=== PATIENT | female | born 1940 | race Caucasian/White ===

== ENCOUNTER → 2019-12-07 | Outpatient (CLI) | payer MEDICARE ==
[~2019-12-07] MED LIST: AMLO10TA8 PO; ASPI-496 PO; CALC-148 PO; CHOL5000 PO; LISI40TA PO; LOVA10TA PO
[2019-12-07 11:12] LABS: ALANINE AMINOTRANSFERASE 12 U/L (12-78); ALBUMIN 4.1 g/dL (3.4-5.0); ANION GAP 7 mmol/L (5-15); CALCIUM 10.2 mg/dL (8.5-10.1); CHLORIDE 108 mmol/L (98-107)
[2019-12-07 11:15] LABS: ALKALINE PHOSPHATASE 92 U/L (45-117); BILIRUBIN,TOTAL 0.8 mg/dL (0.2-1.0); CREATININE 1.27 mg/dL (0.55-1.02); TOTAL PROTEIN 8.2 g/dL (6.4-8.2)
== END | disposition home or self-care (01) ==
LOC: STAR 09:53
PROVIDERS: ATTEND Internal Medicine
DX: Z01.818 Encounter for other preprocedural examination (principal); I44.7 Left bundle-branch block, unspecified
CPT/HCPCS: 36415; 80053; 93005

== ENCOUNTER 2019-12-13 06:34 | Day surgery (SDC) | payer MEDICARE ==
[~2019-12-13] VITALS: Ht 160 cm; Wt 65.8 kg
[2019-12-13] MEDS ORDERED: LACTATED RINGERS 1,000 ML IV SCH (07:15)
[2019-12-13 07:16] VITALS: BP 166/77
[2019-12-13] MEDS ORDERED: CEFAZOLIN 1,000 MG ONE ×2 (09:34)
[2019-12-13] MEDS ORDERED: SODIUM CHLORIDE 0.9% PF 10ML ONE (09:34)
[2019-12-13] MEDS ORDERED: PROPOFOL 10 MG/ML, 20ML ONE ×3 (09:34→09:53)
== END 2019-12-13 12:00 | disposition home or self-care (01) ==
LOC: OUT 06:34
PROVIDERS: ATTEND Internal Medicine
DX: K86.89 Other specified diseases of pancreas (principal); C25.7 Malignant neoplasm of other parts of pancreas; I10 Essential (primary) hypertension; E11.9 Type 2 diabetes mellitus without complications; E78.5 Hyperlipidemia, unspecified; Z79.82 Long term (current) use of aspirin; Z79.899 Other long term (current) drug therapy; Z87.891 Personal history of nicotine dependence; Z83.3 Family history of diabetes mellitus; Z80.3 Family history of malignant neoplasm of breast
CPT/HCPCS: 43242; 82962; 88172; 88173; 88177; 88307; J0690; J2704; J7120

== ENCOUNTER 2020-01-06 07:55 | Outpatient (CLI) | payer MEDICARE | END 2020-01-06 23:59 | disposition home or self-care (01) | LOC: ROC 07:55 | PROVIDERS: ATTEND Radiology Radiation Oncology | DX: C25.9 Malignant neoplasm of pancreas, unspecified (principal); Z80.3 Family history of malignant neoplasm of breast; Z87.891 Personal history of nicotine dependence | CPT/HCPCS: 99214; G0463 ==

== ENCOUNTER 2020-01-20 08:42 | Day surgery (SDC) | payer MEDICARE ==
[~2020-01-20] VITALS: Ht 157.5 cm; Wt 65.1 kg
[2020-01-20] MEDS ORDERED: CEFAZOLIN PMX 1GM/50ML 50 ML IV STA (09:03)
[2020-01-20] MEDS ORDERED: SODIUM CHLORIDE 0.9% 1,000 ML IV SCH (09:03)
[2020-01-20 09:19] VITALS: BP 150/69
[2020-01-20] MEDS ORDERED: PLEASE ENTER HEIGHT AND WEIGHT MC SCH (09:30)
[2020-01-20] MEDS ORDERED: LIDOCAINE 1%, 10ML ONE (10:02)
[2020-01-20] MEDS ORDERED: LIDOCAINE 1%, 20ML ONE (10:02)
[2020-01-20] MEDS ORDERED: MIDAZOLAM 1 MG/ML, 5ML ONE (10:42)
[2020-01-20] MEDS ORDERED: FENTANYL PF 100 MCG/2ML ONE ×2 (10:42)
[2020-01-20] MEDS ORDERED: NALOXONE 1 MG/ML, 2ML ONE (10:43)
[2020-01-20] MEDS ORDERED: FLUMAZENIL 0.1 MG/1 ML, 5ML ONE (10:43)
[2020-01-21] MEDS ORDERED: SODIUM CHLORIDE 0.9% 1,000 ML IV SCH (09:03)
== END 2020-01-20 13:25 | disposition home or self-care (01) ==
LOC: OUT 08:42
PROVIDERS: ATTEND Internal Medicine Hematology & Oncology
DX: C25.8 Malignant neoplasm of overlapping sites of pancreas (principal); I10 Essential (primary) hypertension; E11.9 Type 2 diabetes mellitus without complications; E78.5 Hyperlipidemia, unspecified; Z79.899 Other long term (current) drug therapy; Z87.891 Personal history of nicotine dependence; Z82.49 Family history of ischemic heart disease and other diseases of the circulatory system; Z80.3 Family history of malignant neoplasm of breast
CPT/HCPCS: 36561; 76937; 77001; 99156; 99157; C1788; J0690; J1642; J2250; J3010; J7030; J2310

== ENCOUNTER 2020-02-07 08:49 | Outpatient (CLI) | payer MEDICARE | END 2020-02-07 23:59 | disposition home or self-care (01) | LOC: CFH 08:49 | PROVIDERS: ATTEND Internal Medicine Hematology & Oncology | DX: C25.8 Malignant neoplasm of overlapping sites of pancreas (principal) | CPT/HCPCS: 71250 ==

== ENCOUNTER 2020-05-23 11:48 | Outpatient (CLI) | payer MEDICARE ==
[2020-05-23] MEDS ORDERED: OMNIPAQUE 350 MG/ML, 100ML BOTTLE ONE (15:00)
== END 2020-05-23 23:59 | disposition home or self-care (01) ==
LOC: CFH 11:48
PROVIDERS: ATTEND Internal Medicine Hematology & Oncology
DX: C25.8 Malignant neoplasm of overlapping sites of pancreas (principal); K86.89 Other specified diseases of pancreas
CPT/HCPCS: 71260; 74177; Q9967

== ENCOUNTER → 2020-07-26 | Outpatient (CLI) | payer MEDICARE | END | disposition home or self-care (01) | LOC: PETCFH 07:28 | PROVIDERS: ATTEND Internal Medicine Hematology & Oncology | DX: C25.8 Malignant neoplasm of overlapping sites of pancreas (principal) | CPT/HCPCS: 78815; A9552 ==

== ENCOUNTER 2020-10-02 07:11 | Outpatient (CLI) | payer MEDICARE ==
[~2020-10-02 07:11] MED LIST changes: +AMLO-211 PO; -AMLO10TA8 PO
== END 2020-10-02 23:59 | disposition home or self-care (01) ==
LOC: ROC 07:11
PROVIDERS: ATTEND Radiology Radiation Oncology
DX: Z08 Encounter for follow-up examination after completed treatment for malignant neoplasm (principal); Z85.07 Personal history of malignant neoplasm of pancreas
CPT/HCPCS: 99213; G0463

== ENCOUNTER → 2020-10-10 | Outpatient (CLI) | payer MEDICARE ==
[~2020-10-10] MED LIST changes: +OMNIPAQUE 350 MG/ML, 100ML BOTTLE ONE
== END | disposition home or self-care (01) ==
LOC: CFH 13:04
PROVIDERS: ATTEND Radiology Radiation Oncology
DX: C25.1 Malignant neoplasm of body of pancreas (principal); I10 Essential (primary) hypertension; K86.89 Other specified diseases of pancreas
CPT/HCPCS: 71260; 74177; Q9967

== ENCOUNTER → 2020-12-27 | Outpatient (CLI) | payer MEDICARE ==
[~2020-12-27] MED LIST changes: -LISI40TA PO; +LISI40TA9 PO
== END | disposition home or self-care (01) ==
LOC: CFH 12:51
PROVIDERS: ATTEND Radiology Radiation Oncology
DX: C25.1 Malignant neoplasm of body of pancreas (principal); C25.8 Malignant neoplasm of overlapping sites of pancreas; K86.89 Other specified diseases of pancreas; K86.3 Pseudocyst of pancreas
CPT/HCPCS: 71260; 74177; Q9967

== ENCOUNTER 2020-12-28 10:36 | Outpatient (CLI) | payer MEDICARE ==
[~2020-12-28 10:36] MED LIST changes: -OMNIPAQUE 350 MG/ML, 100ML BOTTLE ONE
== END 2020-12-28 23:59 | disposition home or self-care (01) ==
LOC: ROC 10:36
PROVIDERS: ATTEND Radiology Radiation Oncology
DX: Z08 Encounter for follow-up examination after completed treatment for malignant neoplasm (principal); Z85.07 Personal history of malignant neoplasm of pancreas; I10 Essential (primary) hypertension; Z79.899 Other long term (current) drug therapy
CPT/HCPCS: 99213; G0463

== ENCOUNTER → 2021-03-25 | Outpatient (CLI) | payer MEDICARE ==
[~2021-03-25] MED LIST changes: -CALC-148 PO; +OMNIPAQUE 350 MG/ML, 100ML BOTTLE ONE; +[UNRECOGNIZED DRUG - CODE] PO
== END | disposition home or self-care (01) ==
LOC: CFH 10:10
PROVIDERS: ATTEND Radiology Radiation Oncology
DX: C25.1 Malignant neoplasm of body of pancreas (principal); K86.2 Cyst of pancreas
CPT/HCPCS: 71260; 74177; 82565; Q9967

== ENCOUNTER → 2021-03-27 | Outpatient (CLI) | payer MEDICARE ==
[~2021-03-27] MED LIST changes: -OMNIPAQUE 350 MG/ML, 100ML BOTTLE ONE
== END | disposition home or self-care (01) ==
LOC: ROC 07:32
PROVIDERS: ATTEND Radiology Radiation Oncology
DX: C25.1 Malignant neoplasm of body of pancreas (principal); K76.9 Liver disease, unspecified
CPT/HCPCS: 99213; G0463

== ENCOUNTER 2021-04-15 07:41 | Day surgery (SDC) | payer MEDICARE ==
[~2021-04-15] VITALS: Ht 157.5 cm; Wt 68.5 kg
[2021-04-15 08:18] VITALS: BP 163/80
[2021-04-15 09:01] LABS: INTERNATIONAL NORMALIZED RATIO 0.95 (0.93-1.1); PROTHROMBIN TIME 10.2 Seconds (9.6-11.5)
[2021-04-15] MEDS ORDERED: LIDOCAINE 1%, 10ML ONE (09:04)
[2021-04-15] MEDS ORDERED: MIDAZOLAM 1 MG/ML, 5ML ONE (09:47)
[2021-04-15] MEDS ORDERED: FENTANYL PF 100 MCG/2ML ONE (09:47)
[2021-04-15] MEDS ORDERED: NALOXONE 1 MG/ML, 2ML ONE (09:48)
[2021-04-15] MEDS ORDERED: FLUMAZENIL 0.1 MG/1 ML, 5ML ONE (09:48)
== END 2021-04-15 11:45 | disposition home or self-care (01) ==
LOC: OUT 07:41
PROVIDERS: ATTEND Radiology Radiation Oncology
DX: K76.89 Other specified diseases of liver (principal); C25.1 Malignant neoplasm of body of pancreas; Z79.899 Other long term (current) drug therapy; Z87.891 Personal history of nicotine dependence
CPT/HCPCS: 36415; 47000; 77012; 85610; 99156; 99157; J2250; J3010; J2310

== ENCOUNTER → 2021-04-24 | Outpatient (CLI) | payer MEDICARE | END | disposition home or self-care (01) | LOC: ROC 07:28 | PROVIDERS: ATTEND Radiology Radiation Oncology | DX: Z08 Encounter for follow-up examination after completed treatment for malignant neoplasm (principal); Z85.07 Personal history of malignant neoplasm of pancreas; Z79.899 Other long term (current) drug therapy; Z87.891 Personal history of nicotine dependence | CPT/HCPCS: 99213; G0463 ==